=== PATIENT | female | born 1985 | race Caucasian/White ===

== ENCOUNTER 2017-04-12 03:57 | Day surgery (SDC) | payer MEDICAID ==
[2017-04-12 05:05] LABS: ADD MAN DIFF? NO
[2017-04-12 05:09] LABS: BASOPHILS % 0.2 % (0.0-2.0); EOSINOPHILS # 0.3 10^3/ul (0.0-0.5); HEMATOCRIT 34.9 % (37.0-47.0); HEMOGLOBIN 11.3 g/dl (12.0-16.0); LYMPHOCYTES # 2.7 10^3/ul (0.8-2.9); LYMPHOCYTES % 24.9 % (15.0-51.0); MEAN CORPUSCULAR HGB CONC 32.4 g/dl (32.0-37.0); MEAN CORPUSCULAR VOLUME 83.3 fl (82.0-101.0); MONOCYTES % 9.2 % (0.0-11.0); NEUTROPHIL # 6.8 10^3/ul (1.6-7.5); NEUTROPHILS % 62.5 % (39.0-77.0); PLATELET COUNT 301 10^3/UL (140-415); RED BLOOD COUNT 4.19 10^6/ul (4.20-5.40); RED CELL DISTRIBUTION WIDTH 14.5 % (11.5-14.5)
[2017-04-12 05:09] LABS: WHITE BLOOD COUNT 10.9 10^3/ul (4.8-10.8)
[2017-04-12 05:20] LABS: ADD UMIC YES; UR ASCORBIC ACID NEGATIVE (NEGATIVE); UR BACTERIA FEW /HPF (NONE SEEN); UR BILIRUBIN (Dip) NEGATIVE (NEGATIVE); UR BLOOD (Dip) 2+ mg/dL (NEGATIVE); UR CLARITY CLOUDY (CLEAR); UR COLOR AMBER (YELLOW); UR GLUCOSE (Dip) 1+ mg/dL (NEGATIVE); UR KETONES (Dip) NEGATIVE (NEGATIVE); UR LEUKOCYTE ESTERASE (Dip) TRACE Leu/ul (NEGATIVE); UR NITRITE (Dip) NEGATIVE (NEGATIVE); UR RBC > 182 /HPF (0-5); UR SPECIFIC GRAVITY (Dip) 1.011 (1.003-1.030); UR TOTAL PROTEIN (Dip) 2+ mg/dl (NEGATIVE); UR UROBILINOGEN (Dip) NEGATIVE (NEGATIVE); UR WBC > 182 /HPF (0-5)
[2017-04-12] MEDS ORDERED: CEFAZOLIN 1 GM INJ (07:00)
[2017-04-12] MEDS: ONDANSETRON 4 MG INJ IV (10:58)
[2017-04-12] MEDS: DEXTROSE 5%-0.45% NACL 500 ML IV (10:58)
[2017-04-12] MEDS: CEFAZOLIN 1 GM/50 ML (PMX) 50 ML IVPB (10:58)
[2017-04-12 11:48] LABS: ADD MAN DIFF? NO
[2017-04-12 11:53] LABS: ALANINE AMINOTRANSFERASE 34 IU/L (13-69); ALBUMIN 4.2 g/dl (3.3-4.9); ALBUMIN/GLOBULIN RATIO 1.27; ALKALINE PHOSPHATASE 74 IU/L (42-121); AMYLASE 70 U/L (11-123); ANION GAP 14 (8-16); ASPARTATE AMINO TRANSFERASE 17 IU/L (15-46); BILIRUBIN,INDIRECT 0.2 mg/dl (0-1.1); BILIRUBIN,TOTAL 0.2 mg/dl (0.2-1.3); BLOOD UREA NITROGEN 5 mg/dl (7-20); CALCIUM 9.3 mg/dl (8.4-10.2); CARBON DIOXIDE 26 mmol/L (21-31); CHLORIDE 106 mmol/L (97-110); CREATININE 0.58 mg/dl (0.44-1.00); GLUCOSE 91 mg/dl (70-220); LIPASE 71 U/L (23-300); POTASSIUM 3.7 mmol/L (3.5-5.1); SODIUM 142 mmol/L (135-144); TOTAL PROTEIN 7.5 g/dl (6.1-8.1)
[2017-04-12 11:54] LABS: WHITE BLOOD COUNT 9.2 10^3/ul (4.8-10.8)
[2017-04-12 11:54] LABS: BASOPHILS % 0.2 % (0.0-2.0); EOSINOPHILS # 0.4 10^3/ul (0.0-0.5); EOSINOPHILS % 4.5 % (0.0-7.0); HEMATOCRIT 33.5 % (37.0-47.0); LYMPHOCYTES # 2.5 10^3/ul (0.8-2.9); LYMPHOCYTES % 26.9 % (15.0-51.0); MEAN CORPUSCULAR HEMOGLOBIN 27.4 pg (29.0-33.0); MEAN CORPUSCULAR HGB CONC 32.8 g/dl (32.0-37.0); MEAN CORPUSCULAR VOLUME 83.5 fl (82.0-101.0); MEAN PLATELET VOLUME 9.8 fl (7.4-10.4); MONOCYTE # 0.7 10^3/ul (0.3-0.9); MONOCYTES % 7.3 % (0.0-11.0); NEUTROPHIL # 5.6 10^3/ul (1.6-7.5); NEUTROPHILS % 60.8 % (39.0-77.0); PLATELET COUNT 269 10^3/UL (140-415); RED BLOOD COUNT 4.01 10^6/ul (4.20-5.40); RED CELL DISTRIBUTION WIDTH 14.4 % (11.5-14.5)
[2017-04-12 12:13] LABS: INR 1.05; PROTIME 13.8 Sec (11.9-14.9); PT RATIO 1.1
[2017-04-12 12:14] LABS: PARTIAL THROMBOPLASTIN TIME 33.9 Sec (25.0-35.0)
[2017-04-12] MEDS ORDERED: KETOROLAC 30 MG INJ IV (13:00)
[2017-04-12] MEDS ORDERED: ALBUTEROL 0.083% (NEB) 2.5 MG/3 ML AMP HHN (13:00)
[2017-04-12] MEDS ORDERED: MIDAZOLAM 1 MG/ML 2 ML INJ IV (13:00)
[2017-04-12] MEDS ORDERED: HYDROmorphONE (0.2 MG/ML) 10ML SYG IV ×3 (13:00)
[2017-04-12] MEDS ORDERED: FENTAnyl 50 MCG/ML VIAL IV ×3 (13:00)
[2017-04-12] MEDS ORDERED: DIPHENHYDRAMINE 50 MG INJ IV (13:00)
[2017-04-12] MEDS ORDERED: LABETALOL HCL 20MG INJ IV (13:00)
[2017-04-12] MEDS ORDERED: OXYCODONE/ACETAMINOPHEN (5/325) TAB PO ×2 (13:00)
[2017-04-12] MEDS ORDERED: ONDANSETRON 4 MG INJ IV (13:00)
[2017-04-12] MEDS ORDERED: hydrALAzine 20 MG INJ IV (13:00)
[2017-04-12] MEDS ORDERED: METOCLOPRAMIDE 10 MG INJ IV (13:00)
[2017-04-12] MEDS ORDERED: MEPERIDINE 25 MG INJ IV (13:00)
[2017-04-12] MEDS ORDERED: EPHEDrine SULFATE 50 MG/5 ML SYG IV (13:00)
[2017-04-12] MEDS ORDERED: FENTAnyl 50 MCG/ML VIAL (13:19)
[2017-04-12] MEDS ORDERED: DEXAMETHASONE 4 MG/ML 1 ML INJ (13:30)
[2017-04-12] MEDS ORDERED: ONDANSETRON 4 MG INJ (13:30)
[2017-04-12] MEDS ORDERED: PROPOFOL 20 ML (13:30)
[2017-04-12] MEDS ORDERED: OXYTOCIN 10 UNIT INJ (13:56)
[2017-04-12] MEDS ORDERED: KETOROLAC 30 MG INJ (14:03)
[2017-04-12] MEDS ORDERED: LIDOCAINE 100 MG SYRINGE (14:08)
== END 2017-04-12 18:43 | disposition home or self-care (01) ==
LOC: FTE 03:57 → SDS 12:45
DX: O03.4 Incomplete spontaneous abortion without complication (principal)
CPT/HCPCS: 36415; 59812; 76801; 76817; 80053; 81001; 82150; 83690; 84702; 85025; 85610; 85730; 86850; 86900; 86901; 88305; 96374; 96375; 99285-25

== ENCOUNTER 2017-05-11 17:57 | Emergency (ER) | payer SELFPAY, MEDICAID | END 2017-05-11 22:37 | disposition home or self-care (01) | LOC: FTE 17:57 | DX: M79.603 Pain in arm, unspecified (principal) | CPT/HCPCS: 99283 ==

== ENCOUNTER 2017-07-21 22:59 | Emergency (ER) | payer SELFPAY, MEDICAID ==
[2017-07-22 00:42] LABS: ADD MAN DIFF? NO
[2017-07-22 00:45] LABS: BASOPHILS % 0.3 % (0.0-2.0); EOSINOPHILS # 0.4 10^3/ul (0.0-0.5); EOSINOPHILS % 3.7 % (0.0-7.0); HEMATOCRIT 37.1 % (37.0-47.0); HEMOGLOBIN 11.7 g/dl (12.0-16.0); LYMPHOCYTES # 2.5 10^3/ul (0.8-2.9); LYMPHOCYTES % 26.7 % (15.0-51.0); MEAN CORPUSCULAR HEMOGLOBIN 25.7 pg (29.0-33.0); MEAN CORPUSCULAR HGB CONC 31.5 g/dl (32.0-37.0); MEAN CORPUSCULAR VOLUME 81.5 fl (82.0-101.0); MEAN PLATELET VOLUME 10.2 fl (7.4-10.4); MONOCYTE # 1.1 10^3/ul (0.3-0.9); MONOCYTES % 11.9 % (0.0-11.0); NEUTROPHIL # 5.4 10^3/ul (1.6-7.5); NEUTROPHILS % 57.2 % (39.0-77.0); PLATELET COUNT 291 10^3/UL (140-415); RED BLOOD COUNT 4.55 10^6/ul (4.20-5.40); RED CELL DISTRIBUTION WIDTH 15.7 % (11.5-14.5)
[2017-07-22 00:45] LABS: WHITE BLOOD COUNT 9.4 10^3/ul (4.8-10.8)
== END 2017-07-22 02:35 | disposition home or self-care (01) ==
LOC: FTE 22:59
DX: N93.9 Abnormal uterine and vaginal bleeding, unspecified (principal); R10.2 Pelvic and perineal pain
CPT/HCPCS: 76830; 76856; 81025; 84702; 85025; 99284-25